=== PATIENT | female | born 1960 | race Caucasian/White ===

== ENCOUNTER 2018-07-24 00:58 | Emergency (ER) | payer OTHER ==
[~2018-07-24] VITALS: Ht 144.8 cm; Wt 65.8 kg
--- NOTE | 2018-07-24 01:08 | NUR ---
PT AMBULATED TO ER BED 1
[2018-07-24 01:13] VITALS: BP 102/72
[2018-07-24 01:33] LABS: APPEARANCE,URINE CLOUDY (CLEAR); BILIRUBIN,URINE NEGATIVE (NEGATIVE); BLOOD, URINE NEGATIVE (NEGATIVE); COLOR,URINE YELLOW (YELLOW); LEUKOCYTE ESTERASE ,URINE 1+ (NEGATIVE); NITRITE, URINE NEGATIVE (NEGATIVE); PH,URINE 5.5 (5.0-9.0); UGLUCOSE NEGATIVE (NEGATIVE)
--- NOTE | 2018-07-24 01:36 | NUR ---
PT TO ED WITH C/O GENERALIZED BODY ACHES AND "A BURNING STOMACH" X TODAY. PT DENIES N/V/D. DENIES FEVER/CHILLS. ABD IS SOFT NON TENDER WITH NO DISTENTION NOTED. NO PAIN UPON PALPATION. ACTIVE BOWEL SOUNDS X 4 QUADRANTS. PT PLACED INTO BED, PENDING MD LEWIS.
[2018-07-24 01:38] LABS: BASOPHILS % (AUTO) 0.4 % (0.0-2.0); EOSINOPHILS # (AUTO) 0.2 K/uL (0-0.4); HEMATOCRIT 38.5 % (36-48); HEMOGLOBIN 12.8 g/dL (12.0-16.0); LYMPHOCYTES # (AUTO) 3.2 K/uL (2.5-16.5); LYMPHOCYTES % (AUTO) 28.6 % (20.5-51.1); MEAN CORPUSCULAR HEMOGLOBIN 30 pg (27-31); MEAN CORPUSCULAR HGB CONC 33 g/dL (33-37); MEAN CORPUSCULAR VOLUME 91.3 fL (80-94); MONOCYTES # (AUTO) 0.7 K/uL (0.8-1.0); MONOCYTES % (AUTO) 6.2 % (1.7-9.3); NEUTROPHILS % (AUTO) 62.8 % (42.2-75.2); PLATELET COUNT (AUTO) 275 K/uL (140-450); RED BLOOD CELL COUNT(AUTO) 4.21 MIL/uL (4.20-5.40); RED CELL DISTRIBUTION WIDTH 13.4 % (11.6-13.7); WHITE BLOOD COUNT (AUTO) 11.2 K/uL (4.8-10.8)
[2018-07-24 01:48] LABS: ANION GAP 13.8 (8-16); CARBON DIOXIDE 25.8 mmol/L (21-32); CREATININE 1.9 mg/dL (0.6-1.3); POTASSIUM 4.6 mmol/L (3.5-5.1)
[2018-07-24 01:49] LABS: RBC,URINE 0-5 /HPF (0-5); WBC,URINE 20-60 /HPF (0-5)
[2018-07-24 01:54] LABS: ALBUMIN 3.8 g/dL (3.4-5.0); TOTAL BILIRUBIN 0.1 mg/dL (0.0-1.0)
[2018-07-24] MEDS ORDERED: NACL 0.9% 1,000 ML IV ONE (01:55)
[2018-07-24] MEDS ORDERED: LACTULOSE 20 GM/30 ML UDC PO ONE (02:05)
[2018-07-24] MEDS ORDERED: cefTRIAXone 1,000 MG VIAL ONE (02:10)
[2018-07-24] MEDS ORDERED: LACTULOSE 20 GM/30 ML UDC ONE (02:36)
[2018-07-24 03:05] VITALS: BP 108/71
--- NOTE | 2018-07-24 03:05 | NUR ---
Patient discharged with v/s stable. Written and verbal after care instructions given and explained. Patient alert, oriented and verbalized understanding of instructions. Ambulatory with steady gait. All questions addressed prior to discharge. ID band removed. Patient advised to follow up with PMD. Rx of MACROBID AND MIRALAX given. Patient educated on indication of medication including possible reaction and side effects. Opportunity to ask questions provided and answered.
== END 2018-07-24 03:05 | disposition home or self-care (01) ==
LOC: MED 00:58
DX: N39.0 Urinary tract infection, site not specified (principal); K59.00 Constipation, unspecified; E11.22 Type 2 diabetes mellitus with diabetic chronic kidney disease; I12.9 Hypertensive chronic kidney disease with stage 1 through stage 4 chronic kidney disease, or unspecified chronic kidney disease; N18.9 Chronic kidney disease, unspecified; Z98.890 Other specified postprocedural states
CPT/HCPCS: 36415; 74018; 80053; 81001; 83605; 83690; 85025; 87040; 87086; 96365; 99284; J0696; J7030; J7060; Q0092

== ENCOUNTER 2019-04-21 01:35 | Inpatient (IN) | payer OTHER ==
[~2019-04-21] VITALS: Ht 149.9 cm; Wt 68.2 kg
[2019-04-21 01:35] VITALS: BP 215/76
--- NOTE | 2019-04-21 01:35 | NUR ---
PT BIBA TO ER BED 11
--- NOTE | 2019-04-21 01:39 | NUR ---
DR FOREMAN IN ROOM ASSESSING PT.
--- NOTE | 2019-04-21 01:40 | NUR ---
PT BIBA CRYING AND C/O OF 10/10 MERCER AND GENERAL "NOT FEELING WELL" X1 DAY. PT ALSO ENDORSES N/V AND DIZZINESS. PT BREATHING HEAVILY BUT O2 SATS 98% ON RA AND LUNG SOUNDS CLEAR BILATERALLY. PT DENIES CHEST PAIN OR ABDOMINAL PAIN. PLACED ON MONITOR. BLOOD PRESSURE ELEVATED; HX HTN; DENIES MISSING MEDICATION DOSES. PMH ALSO INCLUDE DEPRESSION, ANXIETY AND SMOKES 1 PACK PER DAY. STARTED IV AND [facility]. GAVE PT URINE CUP AND INSTRUCTED TO TRY TO GIVE SAMPLE.
--- NOTE | 2019-04-21 01:42 | NUR ---
URINE SAMPLE COLLECTED AND SENT TO LAB.
[2019-04-21] MEDS ORDERED: hydrALAZINE 20 MG/ML VIAL IVP ONE (01:45)
[2019-04-21] MEDS ORDERED: ONDANSETRON 4 MG/2 ML VIAL IVP ONE ×2 (01:45→02:55)
[2019-04-21] MEDS ORDERED: MORPHINE SULFATE 4 MG/ML SYR IVP ONE ×2 (01:45→02:55)
--- NOTE | 2019-04-21 02:40 | NUR ---
PT CONTINUES TO CRY IN PAIN. PAIN MILDLY IMPROVED. FAMILY IN THE ROOM FREQUENTLY SEEKING STAFF OUT FOR PAIN MEDICATION. MD UPDATED ON PT'S PAIN. MORPHINE AND ZOFRAN ORDERED.
--- NOTE | 2019-04-21 03:10 | NUR ---
ZOFRAN AND MORPHINE GIVEN. WILL CONTINUE TO MONITOR.
[2019-04-21 03:23] LABS: APPEARANCE,URINE CLEAR (CLEAR); BASOPHILS # (AUTO) 0.1 K/uL (0.00-0.22); BASOPHILS % (AUTO) 0.5 % (0.0-2.0); BILIRUBIN,URINE NEGATIVE (NEGATIVE); BLOOD, URINE NEGATIVE (NEGATIVE); COLOR,URINE YELLOW (YELLOW); EOSINOPHILS # (AUTO) 0.3 K/uL (0-0.4); EOSINOPHILS % (AUTO) 2.2 % (0.0-4.0); HEMATOCRIT 38.2 % (36-48); HEMOGLOBIN 12.3 g/dL (12.0-16.0); LEUKOCYTE ESTERASE ,URINE NEGATIVE (NEGATIVE); LYMPHOCYTES # (AUTO) 3.2 K/uL (2.5-16.5); MEAN CORPUSCULAR HEMOGLOBIN 30 pg (27-31); MEAN CORPUSCULAR HGB CONC 32 g/dL (33-37); MEAN CORPUSCULAR VOLUME 91.5 fL (80-94); MONOCYTES # (AUTO) 0.6 K/uL (0.8-1.0); MONOCYTES % (AUTO) 4.1 % (1.7-9.3); NEUTROPHILS # (AUTO) 10.3 K/uL (1.8-7.7); NEUTROPHILS % (AUTO) 71.2 % (42.2-75.2); NITRITE, URINE NEGATIVE (NEGATIVE); PH,URINE 5.5 (5.0-9.0); PLATELET COUNT (AUTO) 246 K/uL (140-450); RED BLOOD CELL COUNT(AUTO) 4.17 MIL/uL (4.20-5.40); RED CELL DISTRIBUTION WIDTH 14.4 % (11.6-13.7); UGLUCOSE NEGATIVE (NEGATIVE)
[2019-04-21 03:25] LABS: WHITE BLOOD COUNT (AUTO) 14.4 K/uL (4.8-10.8)
[2019-04-21 03:49] LABS: ANION GAP 11.9 (8-16); CARBON DIOXIDE 28.8 mmol/L (21-32); CREATININE 0.9 mg/dL (0.6-1.3); POTASSIUM 3.7 mmol/L (3.5-5.1); TOTAL BILIRUBIN 0.4 mg/dL (0.0-1.0)
[2019-04-21 03:50] LABS: ALBUMIN 3.9 g/dL (3.4-5.0)
--- NOTE | 2019-04-21 03:50 | NUR ---
PT RESTING WITH EYES CLOSED AND LIGHTS OFF. APPEARS COMFORTABLE. DENIES PAIN. WILL CONTINUE TO MONITOR.
[2019-04-21 03:51] LABS: CHOL/HDL RATIO 3.3 (1-4.5)
[2019-04-21 03:54] LABS: CREATINE KINASE MB 1.9 ng/mL (0-3.6)
--- NOTE | 2019-04-21 03:58 | NUR ---
Ultrasound at bedside.
--- NOTE | 2019-04-21 05:09 | NUR ---
PT C/O INCREASE IN MERCER 07/24. BP 104/50. MD UPDATED. WILL CONTINUE TO MONITOR.
[2019-04-21] MEDS ORDERED: KETOROLAC 30 MG/ML VIAL IVP ONE (05:25)
--- NOTE | 2019-04-21 05:38 | NUR ---
BLOOD PRESSURE IMPROVED; SYSTOLIC 120'S. OFFERED PT TORADOL FOR HEADACHE 07/24; PT REFUSED. MD UPDATED. WILL CONTINUE TO MONITOR.
[2019-04-21] MEDS ORDERED: HYDROcodone/APAP 5/325 MG 1 TAB TAB PO ONE (05:50)
--- NOTE | 2019-04-21 05:58 | NUR ---
GAVE PT PO NORCO FOR 08/23 MERCER. WILL CONTINUE TO MONITOR. VSS.
[2019-04-21] MEDS ORDERED: PIPERACILLIN/TAZOBACTAM 3.375 GM in DEXTROSE 5% 50 ML IV ONE (06:25)
--- NOTE | 2019-04-21 06:25 | NUR ---
PT RESTING COMFORTABLY WITH EYES CLOSED AND DENIES PAIN. BP WNL. BLOOD CULTURES OBTAINED AND SENT TO LAB.
[2019-04-21] MEDS ORDERED: PIPERACILLIN/TAZOBACTAM 3.375 GM VIAL IV ONE (06:28)
--- NOTE | 2019-04-21 06:40 | NUR ---
PT RESTING COMFORTABLY. VSS. IV ABX STARTED. WILL CONTINUE TO MONITOR.
[2019-04-21] MEDS ORDERED: LISI40TA4 PO (06:58)
[2019-04-21] MEDS ORDERED: FIO PO (06:58)
[2019-04-21] MEDS ORDERED: OMEP20EC11 PO (06:58)
[2019-04-21] MEDS ORDERED: NAPR-54 PO (06:58)
[2019-04-21] MEDS ORDERED: ALPR1TAB2 PO (06:58)
[2019-04-21] MEDS ORDERED: CITA20TA15 PO (06:58)
--- NOTE | 2019-04-21 07:10 | NUR ---
CHANGE OF SHIFT REPORT GIVEN TO REVA NAQVI.
[2019-04-21] MEDS ORDERED: NACL 0.9% 1,000 ML IV ONE (07:15)
--- NOTE | 2019-04-21 07:16 | NUR ---
PT C/O NAUSEA, BP 81/32. DR KWONG NOTIFIED. VERBAL ORDER FOR BOLUS
[2019-04-21] MEDS ORDERED: ONDANSETRON 4 MG/2 ML VIAL IVP PRN (08:15)
[2019-04-21] MEDS ORDERED: ACETAMINOPHEN 325 MG TAB PO PRN (08:15)
[2019-04-21] MEDS ORDERED: ALPRAZolam 0.5 MG TAB PO PRN (08:15)
--- NOTE | 2019-04-21 08:19 | NUR ---
pt sleeping, no c/o at this time
[2019-04-21 08:55] VITALS: BP 99/37
--- NOTE | 2019-04-21 08:55 | NUR ---
RECEIVED PT FROM ER NURSE, DONYA, PT AMBULATED TO BED WITH HELP, PT COMPLAINING OF HEADACHE, PT IN BED RESTING, LIGHT OFF, PT IS STABLE, INTRODUCE SELF, UPDATE WHITEBOARD, PT HAS L AC 20G, INTRODUCE PT TO ROOM, CALL LIGHT WITHIN REACH.
--- NOTE | 2019-04-21 08:55 | NUR ---
Patient will be admitted to care of . Admited to Med-Surg. Will go to room 112B. Belongings list completed. Report to Naheed ARDON.
[2019-04-21] MEDS ORDERED: NON-FORMULARY ITEM (Omeprazole* (Prilosec*) 20 MG) PO SCH (09:00)
[2019-04-21] MEDS ORDERED: LISINOPRIL 20 MG TAB PO SCH (09:00)
[2019-04-21] MEDS ORDERED: NON-FORMULARY ITEM (Lisinopril 1 TAB) PO SCH (09:00)
[2019-04-21] MEDS: NACL 0.9% 1,000 ML IV SCH ×2 (10:05→18:20)
[2019-04-21] MEDS: CITALOPRAM 20 MG TAB PO SCH (10:06)
[2019-04-21] MEDS: PANTOPRAZOLE 40 MG TABEC PO SCH (10:06)
[2019-04-21] MEDS: HYDROcodone/APAP 5/325 MG 1 TAB TAB PO PRN ×2 (11:03→20:40)
--- NOTE | 2019-04-21 11:03 | NUR ---
ADMINISTERED PAIN MEDICATION FOR BREAST PAIN OF 05/24, PT STATES BREAST FEELS TENDER, PT EDUCATION GIVEN, PT VERBALIZED UNDERSTANDING, PT TOLERATED MEDICATION WELL, PT IS STABLE, CALL LIGHT WITHIN REACH. Addendum: 04/21/19 at 1436 by Naheed Romero RN ADMINISTERED BEAR
[2019-04-21] MEDS: NICOTINE TRANSD SYS 21 MG/24 HR PATCH TD SCH (12:47)
[2019-04-21] MEDS: PIPERACILLIN/TAZOBACTAM 3.375 GM in DEXTROSE 5% 50 ML IV SCH ×2 (12:48→20:42)
--- NOTE | 2019-04-21 13:00 | NUR ---
ADMINISTERED ORDERED MEDICATION, PT EDUCATION GIVEN, PT VERBALIZED UNDERSTANDING, PT IS STABLE, CALL LIGHT WITHIN REACH.
--- NOTE | 2019-04-21 15:20 | NUR ---
PT ASLEEP IN BED, NO SIGNS OF DISTRESS NOTED, PT IS STABLE, RESPIRATIONS ARE EVEN AND UNLABORED ON ROOM AIR, CALL LIGHT WITHIN REACH.
--- NOTE | 2019-04-21 15:43 | NUR ---
Per Diem Rn Note: Basic Screen: Yes High Risk DC Screen [place]: JACQUELINE Shabazz Relationship: DAUGHTER Pre-Admission Living Arrangements: Lives with Other Prior ADL Independent Current Home Health Name/Tel: N/A Current DME/02 Name/Tel: N/A Current Hospice Name/Tel: N/A Current Dialysis Name/Tel: N/A Healthcare Decision Maker: Patient Advance Directive No - REFUSED Physician Orders for Life Sustaining Treatment Form No Patient/Family Have Educational Needs No Information Taught: Community Resources Person Taught: Patient Teaching Tools: Community Resources Computer Generated Print Verbal Factors Affecting Learning: None Participation Level: Active Evaluation: Verbalizes Understanding Needs Additional Education: No Discipline: Case Mgt/Social Svcs Tentative Discharge Plan/Destination: No Needs Identified Will require assistance post discharge: No Referred to Rehabilitation Attendant: No Tentative Discharge Plan Summary: Patient is a 59-year-old female admitted for a breast abscess. Patient has PMHX of hypertensionm, anxiety, depression, GERD, and migraines. Patient was admitted from home where she lives with her daughter. SW met with patient at bedside to verify demographics. Patient stated that she showers at daughter's address but is primarily homeless. SW provided homeless resources. Patient stated that she is able to stay at daughter's address but she doesn't like to intervene on daughter's life. Patient reports history of anxiety and depression. Patient stated that she is in the process of seeing a psychiatrist at [facility]. Patient reports no history of substance abuse. Tentative discharge plan is for patient to return to daughter's house. No further needs identified. Signature: FARZANEH Gerardo Date: Apr 21, 2019 Time: 15:42
[2019-04-21 16:00] VITALS: BP 112/49
--- NOTE | 2019-04-21 19:10 | NUR ---
GAVE REPORT TO NIGHT NURSE FOR CONTINUITY OF CARE, PT IS STABLE.
--- NOTE | 2019-04-21 19:45 | NUR ---
A/A/O X4. FAMILY @ THE BS.C/O RIGHT BREAST THROBBING PAIN SCALE 6;SWOLLEN 7 SLIGHTLY REDDENED. IVF NS INFUSING WELL@ 100 ML/HR.AFEBRILE.INSTRUCTED TO USE CALL LIGHT NEEDED;WITHIN REACH.
[2019-04-21 20:00] VITALS: BP 128/70
--- NOTE | 2019-04-21 20:40 | NUR ---
NORCO 1 TAB PO ADM FOR THROBBING PAIN SCALE 6/10.
--- NOTE | 2019-04-21 21:40 | NUR ---
FOUND RESTING COMFORTABLY IN NO ACUTE DISTRESS POST NORCO PO.
[2019-04-22] VITALS: BP 139/48
--- NOTE | 2019-04-22 | NUR ---
AFEBRILE.IVF INFUSING WELL.
--- NOTE | 2019-04-22 02:00 | NUR ---
RESTING COMFORTABLY IN NO ACUTE DISTRESS.
--- NOTE | 2019-04-22 04:00 | NUR ---
ASLEEP.NA ACUTE DISTRESS.
[2019-04-22] MEDS: PIPERACILLIN/TAZOBACTAM 3.375 GM in DEXTROSE 5% 50 ML IV SCH ×3 (05:47→21:25)
[2019-04-22] MEDS: NACL 0.9% 1,000 ML IV SCH ×3 (06:00→21:24)
--- NOTE | 2019-04-22 06:45 | NUR ---
ENDORSED IN NO ACUTE DISTRESS.IVF INFUSING WELL. SAFETY MAINTAINED.
--- NOTE | 2019-04-22 07:20 | NUR ---
RECEIVED REPORT FROM NIGHT NURSE FOR CONTINUITY OF CARE, PT IS STABLE, AA0X4, NO IV SITE, WILL PUT IN IV LATER, NO SIGNS OF DISTRESS NOTED, SAFETY MEASURES IN PLACE, UPDATED WHITEBOARD, INTRODUCE SELF, ALL NEEDS MET AT THIS TIME.
[2019-04-22 07:53] LABS: ANION GAP 9.1 (8-16); CREATININE 0.7 mg/dL (0.6-1.3); POTASSIUM 4.1 mmol/L (3.5-5.1)
[2019-04-22 07:56] LABS: BASOPHILS % (AUTO) 0.1 % (0.0-2.0); EOSINOPHILS # (AUTO) 0.1 K/uL (0-0.4); HEMOGLOBIN 11.1 g/dL (12.0-16.0); LYMPHOCYTES % (AUTO) 17.2 % (20.5-51.1); MEAN CORPUSCULAR HEMOGLOBIN 30 pg (27-31); MEAN CORPUSCULAR HGB CONC 33 g/dL (33-37); MEAN CORPUSCULAR VOLUME 91.5 fL (80-94); MONOCYTES # (AUTO) 0.5 K/uL (0.8-1.0); MONOCYTES % (AUTO) 4.5 % (1.7-9.3); NEUTROPHILS # (AUTO) 8.8 K/uL (1.8-7.7); NEUTROPHILS % (AUTO) 77.2 % (42.2-75.2); PLATELET COUNT (AUTO) 171 K/uL (140-450); RED BLOOD CELL COUNT(AUTO) 3.72 MIL/uL (4.20-5.40); RED CELL DISTRIBUTION WIDTH 14.4 % (11.6-13.7); WHITE BLOOD COUNT (AUTO) 11.4 K/uL (4.8-10.8)
[2019-04-22 08:00] VITALS: BP 148/62
[2019-04-22 08:15] LABS: MAGNESIUM 1.8 mg/dL (1.8-2.4); PHOSPHORUS 2.7 mg/dL (2.5-4.9)
[2019-04-22] MEDS: CITALOPRAM 20 MG TAB PO SCH (08:25)
[2019-04-22] MEDS: PANTOPRAZOLE 40 MG TABEC PO SCH (08:25)
[2019-04-22] MEDS: LISINOPRIL 20 MG TAB PO SCH (08:25)
[2019-04-22] MEDS: NICOTINE TRANSD SYS 21 MG/24 HR PATCH TD SCH (08:26)
[2019-04-22] MEDS: HYDROcodone/APAP 5/325 MG 1 TAB TAB PO PRN ×2 (08:26→12:35)
--- NOTE | 2019-04-22 08:29 | NUR ---
ADMINISTERED ORDERED MEDICATION, EDUCATION GIVEN, PT VERBALIZED UNDERSTANDING, PT TOLERATED WELL. GAVE PT NORCO FOR BREAST PAIN OF 5/10, PT STATES HER BREAST FEELS TENDER, PT EDUCATION GIVEN, PT IS STABLE. PT HAS RAC 20G INFUSING NS AT 100ML/H, PT IS STABLE, CALL LIGHT WITHIN REACH.
--- NOTE | 2019-04-22 11:09 | NUR ---
PT ASLEEP IN BED, PT IS STABLE, RESPIRATIONS ARE EVEN AND UNLABORED ON ROOM AIR, CALL LIGHT WITHIN REACH.
[2019-04-22] MEDS ORDERED: MAG SULF 2000 MG/WATER PREMIX 50 ML IV SCH (12:00)
--- NOTE | 2019-04-22 12:35 | NUR ---
ADMINISTERED NORCO FOR BREAST PAIN PG 6/10, PT STATES IT FEELS TENDER AND HAS FACIAL GRIMACES, EDUCATION GIVEN, PT VERBALIZED UNDERSTANDING, PT TOLERATED MEDICATION WELL, PT IS STABLE, WILL CONTINUE TO MONITOR, CALL LIGHT WITHIN REACH.
--- NOTE | 2019-04-22 14:37 | NUR ---
ADMINISTERED ORDERED MEDICATION, MEDICATION EDUCATION GIVEN, PT VERBALIZED UNDERSTANDING, PT TOLERATED MEDICATION WELL, PT IS STABLE, CALL LIGHT WITHIN REACH.
[2019-04-22 16:00] VITALS: BP 143/54
--- NOTE | 2019-04-22 18:00 | NUR ---
PT SIGNED CONSENT FOR I&D WITH DR SINGLETARY TOMORROW MORNING, PT INFORMED SHE WILL BE NPO AFTER MIDNIGHT. PT VERBALIZED UNDERSTANDING, PT IS STABLE, CALL LIGHT WITHIN REACH.
--- NOTE | 2019-04-22 19:30 | NUR ---
RECIEVED PT AAOX4 , W/ SWOLLEN R BREAST - C/O PAIN WILL MEDICATE , FOR SURGERY MAKENNA RE EMPHASIZED - W/ SIGNED CONSENT . ON SAFETY PRECAUTION PROTOCOL - POC DISCUSSED AND VERBALIZE UNDERSTANDING , WILL CONT. TO MONITOR , NPO POST MN.
--- NOTE | 2019-04-22 19:30 | NUR ---
GAVE REPORT TO NIGHT NURSE FOR CONTINUITY OF CARE, PT IS STABLE.
[2019-04-22 20:00] VITALS: BP 140/88
--- NOTE | 2019-04-22 22:00 | NUR ---
HOT TO TOUCH - TEMP RE CHECK - FEBRILE - WILL MEDICATE ,.
[2019-04-22] MEDS: MORPHINE SULFATE 4 MG/ML SYR IVP PRN (22:01)
--- NOTE | 2019-04-22 23:00 | NUR ---
TEMP RECHECK 98.9 - WILL CONT. TO MONITOR.
[2019-04-23 02:00] VITALS: BP 123/69
--- NOTE | 2019-04-23 02:00 | NUR ---
C/O PAIN - WILL MEDICATE - MAINTAIN NPO .
[2019-04-23] MEDS: MORPHINE SULFATE 4 MG/ML SYR IVP PRN (02:57)
--- NOTE | 2019-04-23 04:00 | NUR ---
MADE ROUNDS . NO S/ S OF ACUTE DISTRESS NOTED AT THIS TIME . WILL CONT. TO MONITOR.
[2019-04-23] MEDS: PIPERACILLIN/TAZOBACTAM 3.375 GM in DEXTROSE 5% 50 ML IV SCH ×2 (05:19→12:39)
--- NOTE | 2019-04-23 06:00 | NUR ---
SLEEPING - CHEST RISE AND FALL EQUALLY - WILL CONT. TO MONITOR. CALL LIGHT WITHIN REACH.
--- NOTE | 2019-04-23 07:10 | NUR ---
Received bedside report from pm nurse Shannon. Pt resting in bed, awake, no signs of distress, FLACC 0. Right AC IV intact with ongoing NS @ 100ml/hr. Call light within reach.
[2019-04-23 07:53] LABS: BASOPHILS % (AUTO) 0.4 % (0.0-2.0); EOSINOPHILS # (AUTO) 0.1 K/uL (0-0.4); EOSINOPHILS % (AUTO) 1.3 % (0.0-4.0); HEMATOCRIT 31.1 % (36-48); HEMOGLOBIN 10.2 g/dL (12.0-16.0); LYMPHOCYTES # (AUTO) 2.9 K/uL (2.5-16.5); LYMPHOCYTES % (AUTO) 27.5 % (20.5-51.1); MEAN CORPUSCULAR HEMOGLOBIN 30 pg (27-31); MEAN CORPUSCULAR HGB CONC 33 g/dL (33-37); MEAN CORPUSCULAR VOLUME 92.5 fL (80-94); MONOCYTES # (AUTO) 0.5 K/uL (0.8-1.0); MONOCYTES % (AUTO) 4.6 % (1.7-9.3); NEUTROPHILS # (AUTO) 7.1 K/uL (1.8-7.7); NEUTROPHILS % (AUTO) 66.2 % (42.2-75.2); PLATELET COUNT (AUTO) 164 K/uL (140-450); RED BLOOD CELL COUNT(AUTO) 3.37 MIL/uL (4.20-5.40); RED CELL DISTRIBUTION WIDTH 14.4 % (11.6-13.7); WHITE BLOOD COUNT (AUTO) 10.7 K/uL (4.8-10.8)
[2019-04-23] MEDS ORDERED: DEXAMETHASONE 4 MG/ML VIAL ONE (08:00)
[2019-04-23] MEDS ORDERED: SEVOFLURANE 250 ML BTL INH ONE (08:00)
[2019-04-23] MEDS ORDERED: KETOROLAC 30 MG/ML VIAL ONE (08:00)
[2019-04-23] MEDS ORDERED: ONDANSETRON 4 MG/2 ML VIAL ONE (08:00)
[2019-04-23] MEDS ORDERED: PROPOFOL 200 MG/20 ML VIAL IV ONE (08:00)
--- NOTE | 2019-04-23 08:00 | NUR ---
Pt left unit via hospital bed to OR accompanied by RNs. Pt alert, no signs of distress.
[2019-04-23 08:09] LABS: MAGNESIUM 1.9 mg/dL (1.8-2.4); PHOSPHORUS 2.6 mg/dL (2.5-4.9)
[2019-04-23 08:10] LABS: CARBON DIOXIDE 28.8 mmol/L (21-32); CREATININE 0.8 mg/dL (0.6-1.3); POTASSIUM 3.8 mmol/L (3.5-5.1)
[2019-04-23] MEDS: BUPIVACAINE-MPF 0.25% 30 ML VIAL INJ ONE ×2 (08:20→14:37)
[2019-04-23 08:49] LABS: PROTHROMBIN TIME 9.5 secs (10.8-13.4)
[2019-04-23] MEDS ORDERED: BACITRACIN 50000 UNITS/1 VIAL ONE (08:53)
[2019-04-23] MEDS ORDERED: LACTATED RINGERS 1,000 ML IV SCH (08:53)
[2019-04-23] MEDS ORDERED: MEPERIDINE 25 MG/ML SYR IVP PRN (08:55)
[2019-04-23] MEDS ORDERED: diphenhydrAMINE 50 MG/ML VIAL IVP PRN (08:55)
[2019-04-23] MEDS ORDERED: HYDROmorphone 1 MG/ML AMP IVP PRN (08:55)
[2019-04-23] MEDS ORDERED: ONDANSETRON 4 MG/2 ML VIAL IVP PRN (08:55)
--- NOTE | 2019-04-23 08:59 | NUR ---
PATIENT HAS BEEN SCREENED AND CATEGORIZED MODERATE NUTRITION RISK. PATIENT WILL BE SEEN WITHIN 3-5 DAYS OF ADMISSION. 04/23/19 04/25/[address]
--- NOTE | 2019-04-23 10:08 | NUR ---
Patient back in room 112B via hospital bed s/p I&D of R breast. Report received from Zora OR nurse. Pt aaox4, no c/o pain at this time. Right breast surgical dressings ivan, dry, & intact. Call light within reach.
[2019-04-23 10:10] VITALS: BP 145/62
[2019-04-23] MEDS: PANTOPRAZOLE 40 MG TABEC PO SCH (10:50)
[2019-04-23] MEDS: LISINOPRIL 20 MG TAB PO SCH (10:50)
[2019-04-23] MEDS: NICOTINE TRANSD SYS 21 MG/24 HR PATCH TD SCH (10:50)
[2019-04-23] MEDS: CITALOPRAM 20 MG TAB PO SCH (10:50)
[2019-04-23] MEDS: NACL 0.9% 1,000 ML IV SCH (10:58)
--- NOTE | 2019-04-23 12:23 | NUR ---
DISCHARGE PLANNING: RECEIVED AN ORDER FOR HOME HEALTH FOR WOUND CARE. ORDER FAXED TO [facility] AND [facility]. WILL FOLLOW UP. PER SURY OF [facility], WILL CALL ME BACK FOR HOME HEALTH AUTH. Addendum: 04/23/19 at 1422 by Payton Dai 59 y/o female admitted for abscess of the breast and nipple. Pt with hx of hypertension, anxiety/depression and gastroesophageal reflux. Pt had an I&D today; temp 98.8, BP 139/48, WBC 10.7 trending down and Hgb 10.2. DC plan to home once medically stable. MARA Galvez Addendum: 04/23/19 at 1429 by Tierra Fox PER HUGO OF [facility], THEY ARE ABLE TO ACCEPT THE PATIENT. PER SURY OF [facility], H/H AUTH [id number]. Addendum: 04/23/19 at 1511 by Tierra Fox CM MET WITH THE PATIENT AT THE BEDSIDE TO DISCUSS DC PLANNING WITH HOME HEALTH FOR WOUND CARE AND IS IN AGREEMENT. SHE CONFIRMED THAT SHE IS GOING BACK HOME WITH HER DAUGHTER. I INFORMED HER THAT [facility] WILL BE CONTACTING HER TO SET UP A TIME FOR THE VISIT, ABLE TO VERBALIZE UNDERSTANDING BY STATING "OK". CONTACTED [facility] AT [phone], ABLE TO SPEAK TO HUGO. INFORMED HER THAT PATIENT WILL BE DISCHARGING TODAY.
[2019-04-23] MEDS: HYDROcodone/APAP 5/325 MG 1 TAB TAB PO PRN (12:38)
[2019-04-23] MEDS ORDERED: CLIN300C2 PO (12:48)
--- NOTE | 2019-04-23 17:00 | NUR ---
Right AC IV discontinued, cannula intact, site with no bleeding covered with dry gauze and tape. Patient discharged at this time with family. Left unit via wheelchair in stable condition. All belongings with patient upon departure. Addendum: 04/23/19 at 1711 by Juani Huitron RN Addendum: Right breast surgical dressing clean, dry, & intact on discharge.
== END 2019-04-23 17:00 | disposition home health service (06) | DRG 363 ==
LOC: MED 01:35 → MTU 08:18
PROVIDERS: ADMIT Internal Medicine Pulmonary Disease; ATTEND Internal Medicine Pulmonary Disease
PROC: 0HBT0ZZ Excision of Right Breast, Open Approach (ICD-10-PCS; principal; 2019-04-23 14:45)
DX: N61.1 Abscess of the breast and nipple (principal); E86.9 Volume depletion, unspecified; F12.90 Cannabis use, unspecified, uncomplicated; F17.210 Nicotine dependence, cigarettes, uncomplicated; F32.9 Major depressive disorder, single episode, unspecified; F41.9 Anxiety disorder, unspecified; I10 Essential (primary) hypertension; G43.909 Migraine, unspecified, not intractable, without status migrainosus; K21.9 Gastro-esophageal reflux disease without esophagitis
CPT/HCPCS: 36415; 71045; 71260; 76641; 80048; 80053; 81003; 82550; 82553; 83036; 83735; 83880; 84100; 84484; 85025; 85379; 85610; 85730; 87040; 87070; 87075; 87081; 87205; 93005; 96365; 96375; 96376; 99285; J0360; J1100; J1885; J2270; J2405; J2543; J2704; J3475; J3490; J7030; J7060; Q0092; Q9967